=== PATIENT | male | born 1945 | race Two or more races ===

== ENCOUNTER 2025-04-19 15:48 | Emergency (ER) | payer OTHER ==
[~2025-04-19] VITALS: Ht 165.1 cm; Wt 68.0 kg
[2025-04-19] MEDS ORDERED: LOSARTAN POTAS100 MG PO (16:21)
[2025-04-19] MEDS ORDERED: ADULT LOW DOSE81 M1 PO (16:21)
[2025-04-19] MEDS ORDERED: CEFTRIAXONE SODIUM 1,000 MG VIAL IM ONE (16:45)
[2025-04-19 17:32] LABS: BASO % 0.5 % (0.1-1.2); EOS # 0.05 (0.04-0.54); EOS % 0.5 % (0.7-7.0); HEMATOCRIT 32.6 % (40.1-51.0); HEMOGLOBIN 10.1 g/dL (13.7-17.5); LYMPH # 0.93 (1.18-3.74); LYMPH % 8.6 % (19.3-53.1); MEAN CORPUSCULAR HEMOGLOBIN 29.4 pg (25.6-32.2); MONO % 5.5 % (4.7-12.5); NEUT # 9.15 (1.56-6.13); NEUT % 84.5 % (34.0-71.1); PLATELET COUNT 339 K/uL (163-369); RED BLOOD COUNT 3.44 M/uL (4.63-6.08); RED CELL DISTRIBUTION WIDTH 13.8 % (11.6-14.4)
[2025-04-19] MEDS ORDERED: CEFTRIAXONE SODIUM 1,000 MG VIAL ONE (17:33)
[2025-04-19 17:48] LABS: POTASSIUM 4.65 mEq/L (3.5-5.1)
[2025-04-19 17:50] LABS: INR 0.98; PARTIAL THROMBOPLASTIN TIME 25.8 SECONDS (22.0-34.0); PROTHROMBIN TIME 10.7 SECONDS (9.0-11.5)
[2025-04-19 17:57] LABS: ALBUMIN 3.2 gm/dL (3.4-5.0); BILIRUBIN TOTAL 0.4 mg/dL (0.3-1.2); CALCIUM 9.3 mg/dL (8.5-10.1); CREATININE SERUM 1.77 mg/dL (0.70-1.30); GFR 37.2; GLOBULINA 3.5 G/DL (2.4-3.5); TOTAL PROTEIN 6.7 gm/dL (6.4-8.2)
[2025-04-19] MEDS ORDERED: LIDOCAINE HCL 1% 10ML VIAL ONE (18:11)
[2025-04-19] MEDS ORDERED: HYDROGEN PEROXIDE 473 ML BOTTLE TOP ONE (18:11)
[2025-04-19] MEDS ORDERED: 0.9 % SODIUM CHLORIDE 500 ML IV ONE (18:15)
[2025-04-19] MEDS ORDERED: LIDOCAINE HCL 1%/EPINEPHRINE 10 ML VIAL IJ ONE (18:15)
[2025-04-19] MEDS ORDERED: PEPCID AC20 MG PO (18:43)
[2025-04-19] MEDS ORDERED: CEFUROXIME500 MG PO (18:43)
== END 2025-04-19 19:07 | disposition home or self-care (01) ==
LOC: ER 15:48
PROVIDERS: General Practice
DX: S01.01XA Laceration without foreign body of scalp, initial encounter (principal); W19.XXXA Unspecified fall, initial encounter; Y93.89 Activity, other specified; Y92.098 Other place in other non-institutional residence as the place of occurrence of the external cause; Y99.8 Other external cause status; I10 Essential (primary) hypertension
CPT/HCPCS: 12032; 36415; 70450; 71045; 72125; 72170; 93005; 96365; 96372; 99284; J0696; J7042